=== PATIENT | male | born 1965 | race Caucasian/White ===

== ENCOUNTER 2023-09-05 19:54 | Emergency (ER) | payer BC ==
[2023-09-05 20:50] LABS: Bilirubin Neg (Negative); Blood, Urine 250 (Negative); Clarity Clear (Clear); Glucose, Urine (Dipstick) Normal (Negative); Ketone, Urine Negative (Negative); Leukocyte Negative (Negative); Nitrite Negative (Negative); Protein, Urine (Dipstick) Negative (Neg-Trace); Urobilinogen Normal mg/dL (Less than 2)
[2023-09-05 20:58] LABS: Bacteria/HPF Rare-Few HPF (None Seen); CAUTI Indications for Culture Pelvic or flank pain; RBC/HPF 21-50 HPF (0-3); Squamous Epithelial 0-3 HPF (0-3); WBC/HPF 0-3 HPF (0-3)
[2023-09-05 20:59] LABS: Urine Culture Reflex No No
== END 2023-09-05 23:32 | disposition home or self-care (01) ==
LOC: CSHERS 19:54
DX: N20.0 Calculus of kidney (principal); I10 Essential (primary) hypertension; E78.5 Hyperlipidemia, unspecified; I48.91 Unspecified atrial fibrillation; Z79.899 Other long term (current) drug therapy; Z79.01 Long term (current) use of anticoagulants
CPT/HCPCS: 74176; 81001